=== PATIENT | male | born 1955 | race Two or more races ===

== ENCOUNTER 2019-09-21 12:11 | Outpatient (CLI) | payer OTHER | END 2019-09-21 14:44 | disposition home or self-care (01) | LOC: LAB 12:11 | DX: R97.20 Elevated prostate specific antigen [PSA] (principal) ==

== ENCOUNTER 2019-10-02 07:29 | Outpatient (CLI) | payer OTHER | END 2019-10-02 07:38 | disposition home or self-care (01) | LOC: SONOGRAMA 07:29 | DX: R97.20 Elevated prostate specific antigen [PSA] (principal) ==

== ENCOUNTER 2019-10-16 11:20 | Outpatient (CLI) | payer OTHER | END 2019-10-16 12:54 | disposition home or self-care (01) | LOC: NUCLEAR 11:20 | PROVIDERS: ATTEND Urology | DX: C61 Malignant neoplasm of prostate (principal); I87.2 Venous insufficiency (chronic) (peripheral) ==